=== PATIENT | female | born 1960 | race American Indian/Alaskan Native ===

== ENCOUNTER 2016-08-08 10:38 | Emergency (ER) | payer BC ==
[2016-08-08 10:38] VITALS: BMI 33.7
[2016-08-08] MEDS ORDERED: Sodium Chloride 0.9% 1,000 ML IV STA (11:27)
[2016-08-08 11:32] VITALS: RESP 18; TEMP 98.5; O2SAT 98
[2016-08-08 12:26] LABS: ADD MANUAL DIFF? NO
[2016-08-08 12:29] LABS: BASO # 0.02 K/mm3 (0.0-2.0); BASO % 0.4 % (0.0-3.0); EOS # 0.2 (0.0-0.7); EOS % 4.9 % (1.5-5.0); GRAN # 2.48 (1.4-6.5); GRAN % 55.2 % (50.0-68.0); HEMATOCRIT 37.3 % (36.0-48.0); LYMPH # 1.4 (1.2-3.4); LYMPH % 31.3 % (22.0-35.0); MEAN CELL VOLUME 86.7 fL (80.0-105.0); MEAN CORPUSCULAR HEMOGLOBIN 29.3 pg (25.0-35.0); MEAN CORPUSCULAR HGB CONC 33.8 g/dl (31.0-37.0); MEAN PLATELET VOLUME 9.4 fl (7.0-11.0); MONO # 0.4 (0.1-0.6); MONO % 8.2 % (1.0-6.0); PLATELET COUNT 256 10^3/uL (120.0-450.0); WHITE BLOOD COUNT 4.5 10^3/ul (4.5-11.0)
--- NOTE | 2016-08-08 13:21 | ED PDOC ---
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 Patient notes associated diffuse intermittent abdominal pain. Patient has been taking pepto bismol with minimal relief. She denies any fever, chest pain, or other complaints at this time. Patient mentions she last had an endoscopy on 2015. PMD: Dr. Hopkins Time/Duration: Other (3 days) Symptom Onset: Sudden Symptom Course: Intermittent Quality: Other Activities at Onset: Rest Context: Home Past Medical History - Provider Review Nursing Documentation Reviewed: Yes - Infectious Disease Hx of Infectious Diseases: None - Cardiac Hx Cardiac Disorders: No - Pulmonary Hx Respiratory Disorders: No - Neurological Hx Neurological Disorder: No - HEENT Hx HEENT Disorder: Yes (GLASSES) - Renal Hx Renal Disorder: No - Endocrine/Metabolic Hx Endocrine Disorders: Yes Hx Diabetes Mellitus Type 2: Yes Hx Hyperthyroidism: Yes - Hematological/Oncological Hx Blood Disorders: No Hx AIDS: No Hx Blood Transfusions: Yes Hx Blood Transfusion Reaction: No - Integumentary Hx Dermatological Disorder: No Hx Eczema: Yes - Musculoskeletal/Rheumatological Hx Musculoskeletal Disorders: Yes Hx Back Pain: Yes (BULGING DISCS CERVICAL/LUMBAR) Hx Degenerative Joint Disease: Yes (LEFT KNEE) Hx Falls: Yes Hx Osteoarthritis: Yes - Gastrointestinal Hx Gastrointestinal Disorders: No - Genitourinary/Gynecological Hx Genitourinary Disorders: No - Psychiatric Hx Psychophysiologic Disorder: No Hx Emotional Abuse: No Hx Physical Abuse: No Hx Substance Use: No - Surgical History Hx Arthroscopy: Yes (LEFT KNEE) Hx Breast Biopsy: Yes (EXC BREAST CYST) - Anesthesia Hx Anesthesia: Yes Hx Anesthesia Reactions: No (NAUSEA, VOMITTING to Morphine) Hx Malignant Hyperthermia: No - Suicidal Assessment Feels Threatened In Home Enviroment: No Family/Social History - Physician Review Nursing Documentation Reviewed: Yes Family/Social History: Unknown Family HX Smoking Status: Former Smoker Hx Alcohol Use: No Hx Substance Use: No Allergies/Home Meds Allergies/Adverse Reactions: Allergies iodine Allergy (Verified 08/08/16 10:46) RASH strawberry Allergy (Verified 08/08/16 10:46) ANAPHYLAXIS morphine Adverse Reaction (Verified 08/08/16 10:46) NAUSEA Home Medications: Home Meds Medication Instructions Recorded Confirmed Alogliptin Chon/Pioglitazone 1 tab PO HS 08/08/16 08/08/16 [Oseni 12.5-30 mg Tablet] Review of Systems - Physician Review All systems were reviewed & negative as marked: Yes - Review of Systems Constitutional: absent: Fevers Cardiovascular: absent: Chest Pain Gastrointestinal: Abdominal Pain, Diarrhea, Nausea, Vomiting Physical Exam Vital Signs Reviewed: Yes Vital Signs Temp Pulse Resp BP Pulse Ox 08/08/16 14:17 68 18 114/68 98 08/08/16 11:31 98.5 F 71 18 116/71 98 08/08/16 10:48 98.8 F 79 17 118/74 97 Temperature: Afebrile Blood Pressure: Normal Pulse: Regular Respiratory Rate: Normal Appearance: Positive for: Well-Appearing, Non-Toxic, Comfortable Pain Distress: None Mental Status: Positive for: Alert and Oriented X 3 - Systems Exam Head: Present: Atraumatic, Normocephalic Pupils: Present: PERRL Extroacular Muscles: Present: EOMI Conjunctiva: Present: Normal Mouth: Present: Dry (mildly) Neck: Present: Normal Range of Motion Respiratory/Chest: Present: Clear to Auscultation, Good Air Exchange. No: Respiratory Distress, Accessory Muscle Use Cardiovascular: Present: Regular Rate and Rhythm, Normal S1, S2. No: Murmurs Abdomen: Present: Tenderness (mild diffuse tenderness with palpation), Normal Bowel Sounds. No: Distention, Peritoneal Signs, Rebound, Guarding Back: Present: Normal Inspection Upper Extremity: Present: Normal Inspection. No: Cyanosis, Edema Lower Extremity: Present: Normal Inspection. No: Edema Neurological: Present: GCS=15, CN II-XII Intact, Speech Normal Skin: Present: Warm, Dry, Normal Color. No: Rashes Psychiatric: Present: Alert, Oriented x 3, Normal Insight, Normal Concentration Medical Decision Making ED Course and Treatment: 08/08/16 12:47 Impression: A 56 year old female with nausea, vomiting, diarrhea and abdominal pain. Differential Diagnosis included but are not limited to: gastritis Plan: -- Labs -- Pepcid, Zofran, and IV Fluids -- Reassess and disposition Prior Visits: Notes and results from previous visits were reviewed. The patient last presented to the emergency department on 07/30/15 for evaluation of dizziness. Progress Notes: - Lab Interpretations Lab Results: 08/08/16 12:25 08/08/16 15:43 Lab Results 08/08/16 15:43: Sodium 144, Potassium 3.3 L, Chloride 104, Carbon Dioxide 27, Anion Gap 16, BUN 11, Creatinine 0.7, Est GFR ( Amer) > 60, Est GFR (Non- Af Amer) > 60, Random Glucose 75, Calcium 9.7, Total Bilirubin 0.6, AST 29, ALT 53, Alkaline Phosphatase 90, Total Protein 8.1, Albumin 4.3, Globulin 3.8, Albumin/Globulin Ratio 1.1, Amylase 64, Lipase 202 08/08/16 12:25: WBC 4.5 D, RBC 4.30, Hgb 12.6, Hct 37.3, MCV 86.7, MCH 29.3, MCHC 33.8, RDW 13.0, Plt Count 256, MPV 9.4, Gran % 55.2, Lymph % (Auto) 31.3, Hemphill % (Auto) 8.2 H, Eos % (Auto) 4.9, Baso % (Auto) 0.4, Gran # 2.48, Lymph # 1.4, Hemphill # 0.4, Eos # 0.2, Baso # 0.02 I have reviewed the lab results: Yes - Medication Orders Current Medication Orders: Discontinued Medications Famotidine (Pepcid) 20 mg IVP STAT STA Stop: 08/08/16 11:28 Last Admin: 08/08/16 12:24 Dose: 20 mg Sodium Chloride (Sodium Chloride 0.9%) 1,000 mls @ 1,000 mls/hr IV .Q1H STA Stop: 08/08/16 12:26 Last Admin: 08/08/16 12:24 Dose: 1,000 mls/hr Ondansetron HCl (Zofran Inj) 4 mg IVP STAT STA Stop: 08/08/16 11:28 Last Admin: 08/08/16 12:24 Dose: 4 mg - Scribe Statement The provider has reviewed the documentation as recorded by the Jovan Julian Provider Nitishibe Attestation: All medical record entries made by the Scribe were at my direction and personally dictated by me. I have reviewed the chart and agree that the record accurately reflects my personal performance of the history, physical exam, medical decision making, and the department course for this patient. I have also personally directed, reviewed, and agree with the discharge instructions and disposition. Disposition/Present on Arrival - Present on Arrival Any Indicators Present on Arrival: No History of DVT/PE: No History of Uncontrolled Diabetes: Yes Urinary Catheter: No History of Decub. Ulcer: No History Surgical Site Infection Following: None - Disposition Have Diagnosis and Disposition been Completed?: Yes Diagnosis: Gastritis Disposition: HOME/ ROUTINE Disposition Time: 16:10 Patient Plan: Discharge Condition: IMPROVED Discharge Instructions (ExitCare): Gastritis (ED) Additional Instructions: Thank you for letting us take care of you today. Your provider was Dr. Aggarwal. You were treated for gastritis. The emergency medical care you received today was directed at your acute symptoms. If you were prescribed any medication, please fill it and take as directed. It may take several days for your symptoms to resolve. Return to the Emergency Department if your symptoms worsen, do not improve, or if you have any other problems. Please contact your doctor or call one of the physicians/clinics you have been referred to that are listed on the Patient Visit Information form that is included in your discharge packet. Bring any paperwork you were given at discharge with you along with any medications you are taking to your follow up visit. Our treatment cannot replace ongoing medical care by a primary care provider (PCP) outside of the emergency department. Thank you for allowing the [facility] team to be part of your care today. Follow up with your primary doctor in 2-3 days for re-evaluation. Prescriptions: Omeprazole Magnesium [Prilosec Otc] 20 mg PO DAILY #20 tablet. Ranitidine HCl [Zantac] 150 mg PO BID #20 tablet Referrals: Lynnette Hopkins MD [Primary Care Provider] - Follow up with primary
[2016-08-08 16:06] LABS: ALB/GLOB RATIO 1.1 (1.1-1.8); ALKALINE PHOSPHATASE 90 U/L (38-133); ALT/SGPT 53 U/L (7-56); AMYLASE 64 U/L (35-125); AST/SGOT 29 U/L (15-39); BILIRUBIN,TOTAL 0.6 mg/dL (0.2-1.3); BLOOD UREA NITROGEN 11 mg/dL (7-21); CALCIUM 9.7 mg/dL (8.4-10.5); CARBON DIOXIDE 27 mmol/L (21-33); CHLORIDE 104 mmol/L (98-107); GFR AFRICAN-AMERICAN > 60; GLUCOSE,RANDOM 75 mg/dL (70-110); LIPASE 202 U/L (23-300); POTASSIUM 3.3 mmol/L (3.6-5.0); SODIUM 144 mmol/L (132-148); TOTAL PROTEIN 8.1 g/dL (5.8-8.3)
[2016-08-08 16:44] VITALS: BP 118/69; PULSE 65
== END 2016-08-08 16:44 | disposition home or self-care (01) ==
LOC: ED 10:38
DX: K29.70 Gastritis, unspecified, without bleeding (principal); Z87.891 Personal history of nicotine dependence; E11.9 Type 2 diabetes mellitus without complications
CPT/HCPCS: 80053; 82150; 83690; 85025; 96374; 96375; 99284; J2405; J7040